=== PATIENT | male | born 1980 | race Hispanic/Latino ===

== ENCOUNTER 2019-08-24 15:25 | Emergency (ER) | payer BC ==
[2019-08-24] MEDS ORDERED: Ibuprofen 800 MG TAB ONE (16:01)
[2019-08-24] MEDS ORDERED: traMADol HCl 50 MG TAB ONE (16:01)
[2019-08-24 16:02] LABS: Bilirubin Negative (Negative); Blood, Urine Large (Negative); Clarity Clear (Clear); Glucose, Urine (Dipstick) Negative (Negative); Leukocyte Negative (Negative); Nitrite Negative (Negative); Protein, Urine (Dipstick) 30 mg/dL (Neg-Trace)
[2019-08-24 16:07] LABS: Bacteria/HPF None Seen HPF (None Seen); Squamous Epithelial 0-3 HPF (0-3); WBC/HPF None Seen HPF (0-3)
[2019-08-24] MEDS ORDERED: Iopamidol 370 76% 100 ML VIAL ONE (16:08)
[2019-08-24 16:37] LABS: #Basophils 0.2 thou/uL (0.0-0.2); #Eosinphils 0.2 thou/uL (0.0-0.7); #Lymphocytes 2.1 thou/uL (1.20-3.40); #Monocytes 0.8 thou/uL (0.11-0.59); #Neutrophils 8.6 thou/uL (1.40-6.50); %Basophils 1.5 % (0.0-1.0); %Eosinophils 1.5 % (0.0-10.0); %Lymphocytes 17.7 % (21.0-51.0); %Monocytes 6.7 % (0.0-10.0); %Neutrophils 72.5 % (42.0-75.0); Hemoglobin 16.4 g/dL (14.0-18.0); Mean Corpuscular HGB CONC 32.3 g/dL (32.0-36.0); Mean Corpuscular Hemoglobin 29.3 pg (27.0-31.0); Mean Corpuscular Volume 90.7 fL (78.0-98.0); Mean Platelet Volume 7.5 fL (7.4-10.4); Platelet Count 297 thou/uL (130-400); RBC Distribution Width 11.8 % (11.5-14.5); Red Blood Cell (RBC) Count 5.61 mill/uL (4.70-6.10); White Blood Cell (WBC) Count 11.9 thou/uL (4.8-10.8)
[2019-08-24 16:48] LABS: Anion Gap 16 mmol/L (10-20); BUN (Urea Nitrogen) 10 mg/dL (8.9-20.6); Calc. Creatinine Clearance 0 mL/min (70-130); Calcium 9.3 mg/dL (7.8-10.44); Carbon Dioxide 25 mmol/L (22-29); Chloride 101 mmol/L (98-107); Estimated GFR-MDRD 85; Glucose 96 mg/dL (70-105); Potassium 3.9 mmol/L (3.5-5.1); Sodium 138 mmol/L (136-145)
--- NOTE | 2019-08-24 22:44 | RAD ---
CHEST TWO VIEWS: 06/27/19 The heart is normal in size. The mediastinum shows no widening or shift. The lungs are fully inflated and clear. No pneumothorax or pleural effusion was seen. The bony structures appear intact. IMPRESSION: No acute findings. POS: HOME
--- NOTE | 2019-08-24 22:50 | CT ---
CT ABDOMEN AND PELVIS WITH CONTRAST 08/24/[address] of the abdomen and pelvis was performed for evaluation of this patient after a fall. I hear there is hematuria. The lung bases are clear. There is no sign of pleural fluid, pneumothorax, or parenchymal contusion. The visible ribs appeared intact. The liver, spleen, and pancreas were unremarkable in appearance with no sign of laceration or hematom a. The gallbladder appears normal. The abdominal aorta is normal in caliber. The adrenal glands appea r normal. Regarding the kidneys, there is good perfusion of each kidney with no sign of laceration. There is fa irly even distribution of contrast throughout the kidneys. No definite renal damage was appreciated. There is no perinephric stranding. CT of the pelvis shows no signs of hematoma, mass, or inflammatory change. No free fluid was present. The lumbar spine and bony pelvis appeared intact. IMPRESSION: No acute traumatic findings. POS: HOME
== END 2019-08-24 16:56 | disposition home or self-care (01) ==
LOC: BURERS 15:25
DX: S37.012A Minor contusion of left kidney, initial encounter (principal); S30.1XXA Contusion of abdominal wall, initial encounter; S40.812A Abrasion of left upper arm, initial encounter; F17.220 Nicotine dependence, chewing tobacco, uncomplicated; L02.212 Cutaneous abscess of back [any part, except buttock and flank]; W11.XXXA Fall on and from ladder, initial encounter
CPT/HCPCS: 36415; 71046; 74177; 80048; 81003; 81015; 85025; Q9967

== ENCOUNTER 2019-09-03 01:09 | Emergency (ER) | payer BC | END 2019-09-03 01:38 | disposition home or self-care (01) | LOC: BURERS 01:09 | DX: S20.212A Contusion of left front wall of thorax, initial encounter (principal); F17.220 Nicotine dependence, chewing tobacco, uncomplicated; W11.XXXA Fall on and from ladder, initial encounter | CPT/HCPCS: 99281 ==